=== PATIENT | female | born 1935 | race Caucasian/White ===

== ENCOUNTER 2017-03-02 12:02 | Inpatient (IN) | payer OTHER, MEDICARE ==
[2017-03-02] VITALS (248 sets, daily range): BP systolic 108–156; BP diastolic 54–84; PULSE 55–97; TEMP 97.6–98.5; O2SAT 60–100
[~2017-03-02] VITALS: Ht 160 cm; Wt 47.4 kg
[~2017-03-02 12:02] MED LIST: COLACE 100100 MG/CAP PO; SENNALAX S PO; TYLENOL 325MG325 MG PO
[2017-03-02 12:26] LABS: BASO % 0.2 % (0.0-2.0); GRAN # 11.6 (1.4-6.5); HEMATOCRIT 42.2 % (37.0-47.0); HEMOGLOBIN 14.2 g/dl (12.5-16.0); LYMPH # 0.9 (1.2-3.4); LYMPH % 6.6 % (20.0-51.0); MEAN CELL VOLUME 88 fl (80.0-100.0); MEAN CORPUSCULAR HEMOGLOBIN 30 pg (27.0-31.0); MEAN CORPUSCULAR HGB CONC 34 g/dl (33.0-37.0); MEAN PLATELET VOLUME 8.6 fl (7.4-10.4); MONO # 1.2 (0.1-0.6); MONO % 8.3 % (1.7-9.3); PLATELET COUNT 393 K/mm3 (130-400); RED BLOOD COUNT 4.82 M/mm3 (4.10-5.30); REDCELL DISTRIBUTION WIDTH-CV 13.1 % (11.5-14.5); WHITE BLOOD COUNT 13.9 K/mm3 (4.8-10.8)
[2017-03-02 12:28] LABS: INR 1.1 (0.8-3.0); PROTHROMBIN TIME 12.2 SECONDS (9.7-12.8)
[2017-03-02] MEDS ORDERED: ARICEPT 5MG PO (12:33)
[2017-03-02] MEDS ORDERED: ZESTRIL 10MG10 MG PO (12:33)
[2017-03-02 12:34] LABS: ADJUSTED CALCIUM 8.7 mg/dL (8.4-10.2); ALBUMIN 4.4 gm/dL (3.5-5.0); BILIRUBIN,TOTAL 1.1 mg/dL (0.0-1.0); CREATININE, serum 0.97 mg/dL (0.52-1.25); POTASSIUM 4.5 mmol/L (3.4-5.0); TOTAL PROTEIN 7.5 gm/dL (6.4-8.2)
[2017-03-02] MEDS ORDERED: NAMENDA XR 28MG PO (12:35)
[2017-03-02] MEDS ORDERED: SYNTHROID0.05 MG/TA PO (12:35)
[2017-03-02] MEDS ORDERED: CELEBREX 200MG200 MG PO (12:36)
[2017-03-02] MEDS ORDERED: PROLIA60 MG/ML SQ (12:36)
[2017-03-02 12:45] LABS: TROPONIN-I 0.017 ng/mL (0.000-0.034)
[2017-03-02 15:54] LABS: THYROID STIMULATING HORMONE 0.845 uIU/mL (0.465-4.680)
[2017-03-02 16:12] LABS: MAGNESIUM 2.3 mg/dL (1.6-2.3)
[2017-03-02 16:54] LABS: PH 5 (5-8); SQUAMOUS EPITHELIAL 0-2 /hpf; URINE APPEARANCE Hazy; URINE BACTERIA Rare /hpf; URINE BILIRUBIN Negative (NEGATIVE); URINE BLOOD 1+ (NEGATIVE); URINE COLOR Yellow; URINE GLUCOSE Negative (NEGATIVE); URINE KETONE 1+ (NEGATIVE); URINE RBC 0-2 /hpf; URINE UROBILINOGEN Negative (NEGATIVE)
[2017-03-03] VITALS (611 sets, daily range): BP systolic 127–155; BP diastolic 54–67; PULSE 52–69; TEMP 97–98.6; O2SAT 82–100
[2017-03-03 05:39] LABS: BASO % 0.4 % (0.0-2.0); EOS % 0.3 % (0-4.0); GRAN # 8.3 (1.4-6.5); GRAN % 78.4 % (42.2-75.2); HEMATOCRIT 40.8 % (37.0-47.0); HEMOGLOBIN 13.6 g/dl (12.5-16.0); LYMPH # 1.3 (1.2-3.4); MEAN CELL VOLUME 88 fl (80.0-100.0); MEAN CORPUSCULAR HEMOGLOBIN 29 pg (27.0-31.0); MEAN CORPUSCULAR HGB CONC 33 g/dl (33.0-37.0); MEAN PLATELET VOLUME 8.7 fl (7.4-10.4); MONO # 0.9 (0.1-0.6); MONO % 8.5 % (1.7-9.3); PLATELET COUNT 420 K/mm3 (130-400); RED BLOOD COUNT 4.62 M/mm3 (4.10-5.30); REDCELL DISTRIBUTION WIDTH-CV 13.1 % (11.5-14.5); WHITE BLOOD COUNT 10.6 K/mm3 (4.8-10.8)
[2017-03-03 05:48] LABS: CALCIUM 8.4 mg/dL (8.4-10.2); CREATININE, serum 0.84 mg/dL (0.52-1.25); POTASSIUM 4.2 mmol/L (3.4-5.0)
[2017-03-03 05:58] LABS: TROPONIN-I 0.018 ng/mL (0.000-0.034)
[2017-03-04 04:00] VITALS: BP 140/64; PULSE 58; TEMP 98.4
[2017-03-04 08:15] LABS: BASO # 0.1 (0.0-0.2); BASO % 1.2 % (0.0-2.0); EOS # 0.2 (0.0-0.7); GRAN # 4.8 (1.4-6.5); GRAN % 63.2 % (42.2-75.2); HEMOGLOBIN 13.1 g/dl (12.5-16.0); LYMPH # 1.7 (1.2-3.4); LYMPH % 22.2 % (20.0-51.0); MEAN CELL VOLUME 89 fl (80.0-100.0); MEAN CORPUSCULAR HEMOGLOBIN 29 pg (27.0-31.0); MEAN CORPUSCULAR HGB CONC 33 g/dl (33.0-37.0); MEAN PLATELET VOLUME 8.9 fl (7.4-10.4); MONO # 0.8 (0.1-0.6); MONO % 11.1 % (1.7-9.3); PLATELET COUNT 411 K/mm3 (130-400); RED BLOOD COUNT 4.51 M/mm3 (4.10-5.30); WHITE BLOOD COUNT 7.6 K/mm3 (4.8-10.8)
[2017-03-04 08:17] LABS: CALCIUM 8.6 mg/dL (8.4-10.2); CREATININE, serum 0.86 mg/dL (0.52-1.25); POTASSIUM 4.2 mmol/L (3.4-5.0)
[2017-03-04 08:44] VITALS: BP 120/56; PULSE 84; TEMP 98.1
[2017-03-04 12:36] VITALS: BP 121/52; PULSE 60; TEMP 98.6
[2017-03-04] MEDS ORDERED: LOPRESSOR 225 MG/TAB PO (13:30)
[2017-03-04] MEDS ORDERED: ELIQUIS 2.5 PO (13:30)
[2017-03-04 14:25] VITALS: BP 121/52; PULSE 60; TEMP 98.6
== END 2017-03-04 15:19 | DRG 310 ==
LOC: COL.ER 12:02 → MEDICAL 13:58 → EDBEDREQ 15:02 → EDBEDREQSVC 15:03 → EDBEDREQ 15:03 → ICU 15:05 → MEDICAL 03-03 15:45
PROVIDERS: Emergency Medicine; Internal Medicine
DX: I48.0 Paroxysmal atrial fibrillation (principal); I10 Essential (primary) hypertension; E03.9 Hypothyroidism, unspecified; F03.90 Unspecified dementia, unspecified severity, without behavioral disturbance, psychotic disturbance, mood disturbance, and anxiety; Z79.02 Long term (current) use of antithrombotics/antiplatelets; Z98.1 Arthrodesis status
CPT/HCPCS: OP; 99223-AI; 99232-AI; 99239; G0378; G0379; J7030; J7040; J7050

== ENCOUNTER → 2017-03-05 | Outpatient (REF) ==
[~2017-03-05] MED LIST changes: +ALMACONE 360 M360 ML PO; +ARICEPT 5MG PO; +CELEBREX 200MG200 MG PO; +DULCOLAX S10 MG/SUPP RC; +ELIQUIS 2.5 PO; +FERROUS SU325 MG/TAB PO; +FLAGYL500 MG PO; +IMODIUM 2MG CAPS2 MG PO; +IRON325 MG PO; +LEVAQUIN 750MG750 M1 PO; +LOPRESSOR 225 MG/TAB PO; +MILK OF MA400 MG/52 PO; +NAMENDA XR 28MG PO; +PACERONE200 MG PO; +PRINIVIL5 MG PO; +PROLIA60 MG/ML SQ; +PROTONIX 40MG T40 MG PO; +REMERON 15M15 MG/TA1 PO; +SODIUM BICARBO650 MG PO; +SYNTHROID0.05 MG/TA PO; +TYLENOL SU650 MG/SUP RC; +ZESTRIL 10MG10 MG PO
[2017-03-05 15:28] LABS: PH 5 (5-8); SQUAMOUS EPITHELIAL 0-2 /hpf; URINE APPEARANCE Clear; URINE BACTERIA None Seen /hpf; URINE BILIRUBIN Negative (NEGATIVE); URINE BLOOD 1+ (NEGATIVE); URINE COLOR Yellow; URINE GLUCOSE Negative (NEGATIVE); URINE KETONE 1+ (NEGATIVE); URINE RBC 0-2 /hpf; URINE UROBILINOGEN Negative (NEGATIVE); URINE WBC 0-2 /hpf
[2017-03-07 16:37] VITALS: BP 124/58; PULSE 83; TEMP 97.6
== END ==
LOC: ZCOL.LAB 15:12
DX: Z01.89 Encounter for other specified special examinations (principal)

== ENCOUNTER 2017-03-07 16:12 | Outpatient (CLI) | payer OTHER, MEDICARE ==
[2017-03-07 16:10] VITALS: BP 124/58; PULSE 83; TEMP 97.6
[~2017-03-07 16:12] MED LIST changes: -ALMACONE 360 M360 ML PO; -DULCOLAX S10 MG/SUPP RC; -FERROUS SU325 MG/TAB PO; -FLAGYL500 MG PO; -IMODIUM 2MG CAPS2 MG PO; -IRON325 MG PO; -LEVAQUIN 750MG750 M1 PO; -MILK OF MA400 MG/52 PO; -PACERONE200 MG PO; -PRINIVIL5 MG PO; -PROTONIX 40MG T40 MG PO; -REMERON 15M15 MG/TA1 PO; -SODIUM BICARBO650 MG PO; -TYLENOL SU650 MG/SUP RC
[2017-03-07] MEDS ORDERED: REMERON 15M15 MG/TA1 PO (17:58)
== END 2017-03-07 18:59 | disposition home or self-care (01) ==
LOC: EUO 16:12
DX: I48.91 Unspecified atrial fibrillation (principal); R03.1 Nonspecific low blood-pressure reading
CPT/HCPCS: J7040

== ENCOUNTER 2017-03-07 17:11 | Inpatient (IN) | payer OTHER, MEDICARE ==
[2017-03-07] VITALS (133 sets, daily range): BP systolic 105–117; BP diastolic 69–105; PULSE 69–74; TEMP 97.6–97.8; O2SAT 60–100
[~2017-03-07] VITALS: Ht 165.1 cm; Wt 58.4 kg
[2017-03-07] MEDS ORDERED: REMERON 15M15 MG/TA1 PO (17:58)
[2017-03-07 18:31] LABS: BASO # 0.1 (0.0-0.2); BASO % 0.5 % (0.0-2.0); EOS # 0.2 (0.0-0.7); EOS % 1.9 % (0-4.0); LYMPH # 1.5 (1.2-3.4); LYMPH % 14.1 % (20.0-51.0); MEAN CELL VOLUME 89 fl (80.0-100.0); MEAN CORPUSCULAR HGB CONC 33 g/dl (33.0-37.0); MEAN PLATELET VOLUME 8.8 fl (7.4-10.4); MONO # 0.9 (0.1-0.6); MONO % 8.6 % (1.7-9.3); PLATELET COUNT 409 K/mm3 (130-400); RED BLOOD COUNT 3.01 M/mm3 (4.10-5.30); REDCELL DISTRIBUTION WIDTH-CV 13.2 % (11.5-14.5); WHITE BLOOD COUNT 10.8 K/mm3 (4.8-10.8)
[2017-03-07 18:35] LABS: HEMATOCRIT 26.7 % (37.0-47.0); HEMOGLOBIN 8.9 g/dl (12.5-16.0); MEAN CORPUSCULAR HEMOGLOBIN 30 pg (27.0-31.0)
[2017-03-07 18:42] LABS: ADJUSTED CALCIUM 8.8 mg/dL (8.4-10.2); ALANINE AMINOTRANSFERASE 24 U/L (9-52); ALBUMIN 3.5 gm/dL (3.5-5.0); ALKALINE PHOSPHATASE 65 U/L (50-136); ANION GAP 10 mmol/L (7-16); BILIRUBIN,TOTAL 0.5 mg/dL (0.0-1.0); BLOOD UREA NITROGEN 69 mg/dL (7-17); CALCIUM 8.4 mg/dL (8.4-10.2); CARBON DIOXIDE 20 mmol/L (22-30); CHLORIDE 102 mmol/L (98-107); CREATININE, serum 1.31 mg/dL (0.52-1.25); GLUCOSE 97 mg/dL (74-106); POTASSIUM 4.4 mmol/L (3.4-5.0); SODIUM 132 mmol/L (137-145); TOTAL PROTEIN 6.1 gm/dL (6.4-8.2)
[2017-03-07 18:51] LABS: INR 1.4 (0.8-3.0); PROTHROMBIN TIME 15.9 SECONDS (9.7-12.8)
[2017-03-07 18:53] LABS: PARTIAL THROMBOPLASTIN TIME 32.1 SECONDS (26.0-37.0)
[2017-03-07 18:55] LABS: B-TYPE NATRIURETIC PEPTIDE 267 pg/mL (0-450); TROPONIN-I < 0.012 ng/mL (0.000-0.034)
[2017-03-07 22:48] LABS: HEMATOCRIT 24.9 % (37.0-47.0); HEMOGLOBIN 8.2 g/dl (12.5-16.0)
[2017-03-08] VITALS (681 sets, daily range): BP systolic 94–158; BP diastolic 50–94; PULSE 71–102; TEMP 97.6–98.6; O2SAT 46–100
[2017-03-08 06:14] LABS: BASO # 0.1 (0.0-0.2); BASO % 0.9 % (0.0-2.0); EOS # 0.6 (0.0-0.7); EOS % 8.2 % (0-4.0); GRAN # 4.5 (1.4-6.5); GRAN % 59.2 % (42.2-75.2); HEMATOCRIT 41.1 % (37.0-47.0); HEMOGLOBIN 13.6 g/dl (12.5-16.0); LYMPH # 1.7 (1.2-3.4); LYMPH % 22.4 % (20.0-51.0); MEAN CELL VOLUME 89 fl (80.0-100.0); MEAN CORPUSCULAR HEMOGLOBIN 29 pg (27.0-31.0); MEAN CORPUSCULAR HGB CONC 33 g/dl (33.0-37.0); MEAN PLATELET VOLUME 9.8 fl (7.4-10.4); MONO # 0.6 (0.1-0.6); MONO % 8.4 % (1.7-9.3); PLATELET COUNT 176 K/mm3 (130-400); RED BLOOD COUNT 4.63 M/mm3 (4.10-5.30); REDCELL DISTRIBUTION WIDTH-CV 13.5 % (11.5-14.5); WHITE BLOOD COUNT 7.6 K/mm3 (4.8-10.8)
[2017-03-08 06:15] LABS: CREATININE, serum 1.05 mg/dL (0.52-1.25)
[2017-03-08 06:16] LABS: POTASSIUM 4.4 mmol/L (3.4-5.0)
[2017-03-08 09:38] LABS: HEMOGLOBIN 8.1 g/dl (12.5-16.0)
[2017-03-08 09:39] LABS: HEMATOCRIT 24.8 % (37.0-47.0)
[2017-03-09 03:24] VITALS: BP 140/58; PULSE 88; TEMP 98.5
[2017-03-09 07:56] VITALS: BP 130/57; PULSE 83; TEMP 97.6
[2017-03-09 11:17] LABS: BASO # 0.1 (0.0-0.2); BASO % 1.3 % (0.0-2.0); EOS # 0.5 (0.0-0.7); EOS % 6.1 % (0-4.0); GRAN # 5.3 (1.4-6.5); GRAN % 62.6 % (42.2-75.2); LYMPH # 1.5 (1.2-3.4); LYMPH % 18.1 % (20.0-51.0); MEAN CELL VOLUME 91 fl (80.0-100.0); MEAN CORPUSCULAR HGB CONC 33 g/dl (33.0-37.0); MEAN PLATELET VOLUME 8.6 fl (7.4-10.4); MONO # 0.9 (0.1-0.6); MONO % 10.5 % (1.7-9.3); RED BLOOD COUNT 2.68 M/mm3 (4.10-5.30); REDCELL DISTRIBUTION WIDTH-CV 13.7 % (11.5-14.5); WHITE BLOOD COUNT 8.4 K/mm3 (4.8-10.8)
[2017-03-09 11:34] LABS: HEMATOCRIT 24.3 % (37.0-47.0); HEMOGLOBIN 7.9 g/dl (12.5-16.0); MEAN CORPUSCULAR HEMOGLOBIN 29 pg (27.0-31.0); PLATELET COUNT 370 K/mm3 (130-400)
[2017-03-09 11:38] LABS: ADJUSTED CALCIUM 8.8 mg/dL (8.4-10.2); ALBUMIN 3.1 gm/dL (3.5-5.0); BILIRUBIN,TOTAL 0.5 mg/dL (0.0-1.0); CALCIUM 8.1 mg/dL (8.4-10.2); POTASSIUM 4.1 mmol/L (3.4-5.0); TOTAL PROTEIN 5.6 gm/dL (6.4-8.2)
[2017-03-09 11:42] VITALS: BP 115/45; PULSE 75; TEMP 97.7
[2017-03-09] MEDS ORDERED: LOPRESSOR 225 MG/TAB PO (13:08)
[2017-03-09] MEDS ORDERED: PRINIVIL5 MG PO (13:09)
[2017-03-09] MEDS ORDERED: PROTONIX 40MG T40 MG PO (13:11)
[2017-03-09] MEDS ORDERED: IRON325 MG PO (13:16)
[2017-03-09 13:52] VITALS: BP 115/45; PULSE 75; TEMP 97.7
== END 2017-03-09 15:00 | DRG 378 ==
LOC: COL.ER 17:11 → ICU 19:54 → MEDICAL 03-08 16:09
PROVIDERS: Emergency Medicine; Family Medicine; Internal Medicine Gastroenterology; Nurse Practitioner Family
PROC: 0W3P8ZZ Control Bleeding in Gastrointestinal Tract, Via Natural or Artificial Opening Endoscopic (ICD-10-PCS; principal; 2017-03-08 10:00)
DX: K26.4 Chronic or unspecified duodenal ulcer with hemorrhage (principal); D62 Acute posthemorrhagic anemia; N17.9 Acute kidney failure, unspecified; I48.0 Paroxysmal atrial fibrillation; E03.9 Hypothyroidism, unspecified; F03.90 Unspecified dementia, unspecified severity, without behavioral disturbance, psychotic disturbance, mood disturbance, and anxiety; T45.515A Adverse effect of anticoagulants, initial encounter
CPT/HCPCS: 99223-AI; 99239; C9113; J0171; J7030; J7040

== ENCOUNTER 2017-03-11 10:51 | Inpatient (IN) | payer OTHER, MEDICARE ==
[2017-03-11] VITALS (8 sets, daily range): BP systolic 90–147; BP diastolic 40–80; PULSE 69–96; TEMP 98.6–99.9
[~2017-03-11] VITALS: Ht 165.1 cm; Wt 56.6 kg
[~2017-03-11 10:51] MED LIST changes: +IRON325 MG PO; +PRINIVIL5 MG PO; +PROTONIX 40MG T40 MG PO; +REMERON 15M15 MG/TA1 PO
[2017-03-11 11:29] LABS: INR 1.1 (0.8-3.0); PROTHROMBIN TIME 11.7 SECONDS (9.7-12.8)
[2017-03-11 11:32] LABS: PARTIAL THROMBOPLASTIN TIME 26.2 SECONDS (26.0-37.0)
[2017-03-11 11:33] LABS: BASO # 0.1 (0.0-0.2); BASO % 0.4 % (0.0-2.0); EOS # 0.1 (0.0-0.7); EOS % 0.5 % (0-4.0); GRAN # 15.7 (1.4-6.5); GRAN % 88.5 % (42.2-75.2); HEMATOCRIT 26.4 % (37.0-47.0); HEMOGLOBIN 8.6 g/dl (12.5-16.0); LYMPH % 5.7 % (20.0-51.0); MEAN CELL VOLUME 92 fl (80.0-100.0); MEAN CORPUSCULAR HEMOGLOBIN 30 pg (27.0-31.0); MEAN CORPUSCULAR HGB CONC 33 g/dl (33.0-37.0); MEAN PLATELET VOLUME 8.9 fl (7.4-10.4); MONO # 0.7 (0.1-0.6); MONO % 3.7 % (1.7-9.3); PLATELET COUNT 395 K/mm3 (130-400); RED BLOOD COUNT 2.88 M/mm3 (4.10-5.30); REDCELL DISTRIBUTION WIDTH-CV 14.6 % (11.5-14.5); WHITE BLOOD COUNT 17.7 K/mm3 (4.8-10.8)
[2017-03-11] MEDS ORDERED: MILK OF MA400 MG/52 PO (11:48)
[2017-03-11 11:49] LABS: ADJUSTED CALCIUM 9.4 mg/dL (8.4-10.2); ALBUMIN 3.1 gm/dL (3.5-5.0); BILIRUBIN,TOTAL 0.6 mg/dL (0.0-1.0); CALCIUM 8.7 mg/dL (8.4-10.2); CREATININE, serum 1.32 mg/dL (0.52-1.25); POTASSIUM 4.1 mmol/L (3.4-5.0); TOTAL PROTEIN 5.6 gm/dL (6.4-8.2)
[2017-03-11] MEDS ORDERED: ALMACONE 360 M360 ML PO (11:49)
[2017-03-11] MEDS ORDERED: DULCOLAX S10 MG/SUPP RC (11:49)
[2017-03-11] MEDS ORDERED: TYLENOL SU650 MG/SUP RC (11:50)
[2017-03-11] MEDS ORDERED: TYLENOL 325MG325 MG PO (11:50)
[2017-03-11] MEDS ORDERED: IMODIUM 2MG CAPS2 MG PO (11:51)
[2017-03-11 13:06] LABS: PH 5 (5-8); SQUAMOUS EPITHELIAL 0-2 /hpf; URINE APPEARANCE Hazy; URINE BACTERIA None Seen /hpf; URINE BILIRUBIN Negative (NEGATIVE); URINE BLOOD 1+ (NEGATIVE); URINE COLOR Yellow; URINE GLUCOSE Negative (NEGATIVE); URINE KETONE Negative (NEGATIVE); URINE RBC 0-2 /hpf; URINE UROBILINOGEN Negative (NEGATIVE); URINE WBC 0-2 /hpf
[2017-03-11] MEDS ORDERED: FERROUS SU325 MG/TAB PO (15:08)
[2017-03-12] VITALS (10 sets, daily range): BP systolic 96–136; BP diastolic 43–69; PULSE 43–81; TEMP 97.5–99.3
[2017-03-12 07:05] LABS: BASO % 0.3 % (0.0-2.0); EOS % 0.3 % (0-4.0); GRAN # 10.3 (1.4-6.5); GRAN % 83.8 % (42.2-75.2); LYMPH # 1.1 (1.2-3.4); LYMPH % 9.2 % (20.0-51.0); MEAN CELL VOLUME 89 fl (80.0-100.0); MEAN CORPUSCULAR HGB CONC 33 g/dl (33.0-37.0); MEAN PLATELET VOLUME 8.7 fl (7.4-10.4); MONO # 0.7 (0.1-0.6); PLATELET COUNT 297 K/mm3 (130-400); RED BLOOD COUNT 3.61 M/mm3 (4.10-5.30); WHITE BLOOD COUNT 12.3 K/mm3 (4.8-10.8)
[2017-03-12 07:09] LABS: HEMATOCRIT 32.2 % (37.0-47.0); HEMOGLOBIN 10.7 g/dl (12.5-16.0); MEAN CORPUSCULAR HEMOGLOBIN 30 pg (27.0-31.0)
[2017-03-12 07:17] LABS: CALCIUM 7.4 mg/dL (8.4-10.2); CREATININE, serum 1.2 mg/dL (0.52-1.25); MAGNESIUM 1.8 mg/dL (1.6-2.3); PHOSPHOROUS 3.7 mg/dL (2.5-4.5); POTASSIUM 3.7 mmol/L (3.4-5.0)
[2017-03-12 16:30] LABS: HEMATOCRIT 32.1 % (37.0-47.0); HEMOGLOBIN 10.7 g/dl (12.5-16.0)
[2017-03-13] VITALS (7 sets, daily range): BP systolic 125–155; BP diastolic 57–82; PULSE 67–118; TEMP 97.4–98.7
[2017-03-13 00:56] LABS: HEMATOCRIT 38.2 % (37.0-47.0)
[2017-03-13 01:02] LABS: HEMOGLOBIN 12.9 g/dl (12.5-16.0)
[2017-03-13 07:13] LABS: MEAN CELL VOLUME 89 fl (80.0-100.0); MEAN CORPUSCULAR HGB CONC 34 g/dl (33.0-37.0); MEAN PLATELET VOLUME 8.7 fl (7.4-10.4); PLATELET COUNT 284 K/mm3 (130-400); RED BLOOD COUNT 3.23 M/mm3 (4.10-5.30); REDCELL DISTRIBUTION WIDTH-CV 15.7 % (11.5-14.5); WHITE BLOOD COUNT 14.8 K/mm3 (4.8-10.8)
[2017-03-13 07:19] LABS: HEMATOCRIT 28.8 % (37.0-47.0); HEMOGLOBIN 9.7 g/dl (12.5-16.0); MEAN CORPUSCULAR HEMOGLOBIN 30 pg (27.0-31.0)
[2017-03-13 07:20] LABS: ADD PATHOLOGY DIFF REVIEW NO
[2017-03-13 07:33] LABS: CALCIUM 6.4 mg/dL (8.4-10.2); CREATININE, serum 0.89 mg/dL (0.52-1.25); MAGNESIUM 1.5 mg/dL (1.6-2.3); POTASSIUM 3.3 mmol/L (3.4-5.0)
[2017-03-13 07:38] LABS: BAND 17 % (0-10); NEUTROPHILS 71 % (42.0-75.2); PLATELET ESTIMATE NORMAL (NORMAL); TOTAL CELLS COUNTED 100
[2017-03-13 07:39] LABS: ANISOCYTOSIS 1+; OVALOCYTES 1+
[2017-03-14 03:23] VITALS: BP 153/73; PULSE 78; TEMP 98.5
[2017-03-14 08:00] VITALS: BP 164/84; PULSE 84; TEMP 98.6
[2017-03-14 08:03] LABS: ADD PATHOLOGY DIFF REVIEW NO
[2017-03-14 08:11] LABS: MEAN CELL VOLUME 89 fl (80.0-100.0); MEAN CORPUSCULAR HGB CONC 33 g/dl (33.0-37.0); MEAN PLATELET VOLUME 8.8 fl (7.4-10.4); PLATELET COUNT 318 K/mm3 (130-400); RED BLOOD COUNT 3.69 M/mm3 (4.10-5.30); REDCELL DISTRIBUTION WIDTH-CV 15.4 % (11.5-14.5)
[2017-03-14 08:18] LABS: HEMATOCRIT 32.9 % (37.0-47.0); HEMOGLOBIN 10.8 g/dl (12.5-16.0); MEAN CORPUSCULAR HEMOGLOBIN 29 pg (27.0-31.0)
[2017-03-14 08:37] LABS: ADJUSTED CALCIUM 8.5 mg/dL (8.4-10.2); ALBUMIN 2.7 gm/dL (3.5-5.0); BILIRUBIN,TOTAL 0.9 mg/dL (0.0-1.0); CALCIUM 7.5 mg/dL (8.4-10.2); CREATININE, serum 1.01 mg/dL (0.52-1.25); MAGNESIUM 2.5 mg/dL (1.6-2.3); POTASSIUM 4.1 mmol/L (3.4-5.0); TOTAL PROTEIN 5.3 gm/dL (6.4-8.2)
[2017-03-14 08:57] LABS: BAND 25 % (0-10); EOSINOPHIL 1 % (0-4); NEUTROPHILS 67 % (42.0-75.2); PLATELET ESTIMATE NORMAL (NORMAL); TOTAL CELLS COUNTED 100
[2017-03-14 11:46] VITALS: BP 137/53; PULSE 68; TEMP 97.9
[2017-03-14 16:58] VITALS: BP 158/68; PULSE 85; TEMP 99.2
[2017-03-14 20:29] VITALS: BP 148/55; PULSE 95; TEMP 98.1
[2017-03-14 22:44] VITALS: BP 134/55; PULSE 51; TEMP 98.5
[2017-03-15 06:02] VITALS: BP 150/96; PULSE 115; TEMP 97.7
[2017-03-15 08:50] LABS: ADD PATHOLOGY DIFF REVIEW NO
[2017-03-15 08:54] LABS: MEAN CELL VOLUME 90 fl (80.0-100.0); MEAN CORPUSCULAR HGB CONC 33 g/dl (33.0-37.0); MEAN PLATELET VOLUME 8.7 fl (7.4-10.4); PLATELET COUNT 330 K/mm3 (130-400); REDCELL DISTRIBUTION WIDTH-CV 15.5 % (11.5-14.5)
[2017-03-15 09:09] LABS: HEMATOCRIT 33.2 % (37.0-47.0); HEMOGLOBIN 10.9 g/dl (12.5-16.0); MEAN CORPUSCULAR HEMOGLOBIN 29 pg (27.0-31.0)
[2017-03-15 09:27] LABS: ADJUSTED CALCIUM 8.8 mg/dL (8.4-10.2); ALBUMIN 2.6 gm/dL (3.5-5.0); BILIRUBIN,TOTAL 0.8 mg/dL (0.0-1.0); CALCIUM 7.7 mg/dL (8.4-10.2); CREATININE, serum 0.96 mg/dL (0.52-1.25); POTASSIUM 4.1 mmol/L (3.4-5.0); TOTAL PROTEIN 5.2 gm/dL (6.4-8.2)
[2017-03-15 09:37] LABS: BAND 13 % (0-10); EOSINOPHIL 8 % (0-4); MYELOCYTE 1 % (0-0); NEUTROPHILS 65 % (42.0-75.2); TOTAL CELLS COUNTED 100
[2017-03-15 09:38] LABS: ANISOCYTOSIS 1+; BURR CELLS 1+; PLATELET ESTIMATE NORMAL (NORMAL)
[2017-03-15 10:03] VITALS: BP 149/90; PULSE 89; TEMP 98.1
[2017-03-15 14:13] VITALS: BP 150/69; PULSE 59; TEMP 97.9
[2017-03-15 15:41] VITALS: BP 160/75; PULSE 73; TEMP 98.6
[2017-03-15 21:21] VITALS: BP 148/66; PULSE 91; TEMP 98.1
[2017-03-16] VITALS (7 sets, daily range): BP systolic 151–175; BP diastolic 63–82; PULSE 71–88; TEMP 97.8–98.9
[2017-03-16 09:31] LABS: CALCIUM 7.8 mg/dL (8.4-10.2); CREATININE, serum 0.96 mg/dL (0.52-1.25); MAGNESIUM 1.7 mg/dL (1.6-2.3); POTASSIUM 4.2 mmol/L (3.4-5.0)
[2017-03-17 02:49] VITALS: BP 149/70; PULSE 78; TEMP 98.5
[2017-03-17 07:20] LABS: MEAN CELL VOLUME 89 fl (80.0-100.0); MEAN CORPUSCULAR HGB CONC 33 g/dl (33.0-37.0); MEAN PLATELET VOLUME 8.4 fl (7.4-10.4); PLATELET COUNT 351 K/mm3 (130-400); RED BLOOD COUNT 3.79 M/mm3 (4.10-5.30); WHITE BLOOD COUNT 8.7 K/mm3 (4.8-10.8)
[2017-03-17 07:23] LABS: HEMATOCRIT 33.7 % (37.0-47.0); HEMOGLOBIN 11.1 g/dl (12.5-16.0); MEAN CORPUSCULAR HEMOGLOBIN 29 pg (27.0-31.0)
[2017-03-17 07:32] VITALS: BP 144/73; PULSE 80; TEMP 98
[2017-03-17 07:32] LABS: CALCIUM 8.1 mg/dL (8.4-10.2); CREATININE, serum 1.02 mg/dL (0.52-1.25); POTASSIUM 4.6 mmol/L (3.4-5.0)
[2017-03-17 11:49] VITALS: BP 141/69; PULSE 76; TEMP 98
[2017-03-17 15:45] VITALS: BP 141/73; PULSE 85; TEMP 98.4
[2017-03-17 16:15] VITALS: BP 141/73; PULSE 85; TEMP 98.4
[2017-03-17] MEDS ORDERED: PRINIVIL5 MG PO (16:15)
[2017-03-17] MEDS ORDERED: LEVAQUIN 750MG750 M1 PO (16:15)
[2017-03-17] MEDS ORDERED: FLAGYL500 MG PO (16:15)
[2017-03-17] MEDS ORDERED: SODIUM BICARBO650 MG PO (16:16)
[2017-03-17] MEDS ORDERED: PACERONE200 MG PO (16:24)
== END 2017-03-17 16:45 | DRG 392 ==
LOC: COL.ER 10:51 → MEDICAL 12:09
PROVIDERS: Emergency Medicine; Internal Medicine; Physician Assistant
DX: A09 Infectious gastroenteritis and colitis, unspecified (principal); N17.9 Acute kidney failure, unspecified; E87.2 Acidosis; D62 Acute posthemorrhagic anemia; I48.0 Paroxysmal atrial fibrillation; E86.0 Dehydration; Z66 Do not resuscitate; F03.90 Unspecified dementia, unspecified severity, without behavioral disturbance, psychotic disturbance, mood disturbance, and anxiety; E03.9 Hypothyroidism, unspecified; D64.9 Anemia, unspecified; I10 Essential (primary) hypertension; I95.9 Hypotension, unspecified; R53.1 Weakness
CPT/HCPCS: 99232-AI; 99233-AI; 99239; G0378; G8978-GP; G8979-GP; G8987-GO; G8988-GO; J2543; J3475; J7030; J7040; J7050; P9016

== ENCOUNTER → 2017-03-20 | Outpatient (CLI) | payer OTHER, MEDICARE ==
[~2017-03-20] MED LIST changes: +ALMACONE 360 M360 ML PO; +DULCOLAX S10 MG/SUPP RC; +FERROUS SU325 MG/TAB PO; +FLAGYL500 MG PO; +IMODIUM 2MG CAPS2 MG PO; +LEVAQUIN 750MG750 M1 PO; +MILK OF MA400 MG/52 PO; +PACERONE200 MG PO; +SODIUM BICARBO650 MG PO; +TYLENOL SU650 MG/SUP RC
== END ==
LOC: COL.RAD 13:49
DX: S82.142A Displaced bicondylar fracture of left tibia, initial encounter for closed fracture (principal); W18.30XA Fall on same level, unspecified, initial encounter

== ENCOUNTER → 2017-04-10 | Outpatient (REF) ==
[2017-04-10 22:44] LABS: PH 5 (5-8); SQUAMOUS EPITHELIAL None Seen /hpf; URINE APPEARANCE Turbid; URINE BACTERIA None Seen /hpf; URINE BILIRUBIN Negative (NEGATIVE); URINE BLOOD 2+ (NEGATIVE); URINE COLOR Amber; URINE GLUCOSE Negative (NEGATIVE); URINE KETONE Negative (NEGATIVE); URINE UROBILINOGEN Negative (NEGATIVE); URINE WBC >50 /hpf
== END ==
LOC: ZCOL.LAB 22:26
PROVIDERS: Family Medicine
DX: Z01.89 Encounter for other specified special examinations (principal)